=== PATIENT | female | born 1960 | race Caucasian/White ===

== ENCOUNTER 2017-11-23 13:45 | Emergency (ER) | payer BC ==
[~2017-11-23] VITALS: Ht 175.3 cm; Wt 72.6 kg
[~2017-11-23 13:45] MED LIST: ALBIPROI; ALBIPROI INH; AMOCLA875 PO; ASPI81EC; BUPR100 PO; BUPR75 PO; Budeprion Xl300 MG; CALCAVITDA; CALCAVITDA PO; CLIN300 PO; CONEST.9; CONEST.9 PO; CONEST1.25; DHEA PO; DOCU100 PO; ESCI10; ESTR.05PBW TOP; ESTR2; ESTROGEN PO; FISH1000 PO; FLUSAL1005; FROV2.5 PO; HORMONE; HYDACE5 PO; HYDMOR2 PO; HYDMOR4 PO; HYOS.125 SL; MECL25 PO; NABU500 PO; NAPR500; NAPR550 PO; OXYACE5T PO; PRED20 PO; PROC10 PO; PROG100 PO; PROM25 PO; PROM25S PR; RANI150; RXNAPNA550 PO; SULTRIDS PO; SUMA25; SUMA6I SC; SUMA6I SUBQ; SYNTEST; SYNTHETIC CONJUGATED ESTROGENS B; TOPI100; TOPI25 PO; TOPI50 PO; ZOLP10; [UNRECOGNIZED DRUG - OTHER]; [UNRECOGNIZED DRUG - OTHER]
[2017-11-23 14:47] LABS: BASOPHILS ABSOLUTE AUTO 0.04 K/mm3 (0.00-0.23); BASOPHILS PERCENT AUTO 0 % (0-2); EOSINOPHILS ABSOLUTE AUTO 0.07 K/mm3 (0.00-0.68); EOSINOPHILS PERCENT AUTO 1 % (0-6); Hematocrit 40.2 % (33.0-51.0); Hemoglobin 13.6 g/dL (11.5-16.0); IMMATURE GRAN ABSOLUTE AUTO 0.03 K/mm3 (0.00-0.10); IMMATURE GRAN PERCENT AUTO 0 % (0-1); LYMPHOCYTES ABSOLUTE AUTO 1.37 K/mm3 (0.84-5.20); LYMPHOCYTES PERCENT AUTO 13 % (21-46); MONOCYTES ABSOLUTE AUTO 0.78 K/mm3 (0.16-1.47); MONOCYTES PERCENT AUTO 7 % (4-13); Mean Corpuscular HGB 30.4 pg (26.0-34.0); Mean Corpuscular HGB Conc 33.8 g/dL (31.5-36.5); Mean Corpuscular Volume 90 fL (80-100); Mean Platelet Volume 9.6 fL (9.1-12.4); NEUTROPHILS ABSOLUTE AUTO 8.38 K/mm3 (1.96-9.15); NEUTROPHILS PERCENT AUTO 79 % (41-73); Platelet Count 259 K/mm3 (150-400); RDW Coefficient Variation 11.9 % (11.7-14.2); RDW Standard Deviation 38.9 fL (35.1-46.3); Red Blood Cell Count 4.47 M/mm3 (3.80-5.20); White Blood Cell Count 10.67 K/mm3 (4.00-11.30)
[2017-11-23 15:07] LABS: Albumin, Blood 3.8 g/dL (3.4-5.0); Albumin/Globulin Ratio 1.2 (0.8-1.8); Bilirubin, Total 0.4 mg/dL (0.1-1.0); Calcium, Blood 8.2 mg/dL (8.5-10.1); Creatinine, Blood 1.06 mg/dL (0.40-1.00); Globulin, Blood 3.2 g/dL (2.2-4.0); Potassium, Blood 3.4 mmol/L (3.5-5.5)
[2017-11-23 16:33] LABS: Source, Urine Clean Catch
[2017-11-23 16:36] LABS: Blood, Urine 1+ (Neg); Glucose Qualitative, Urine Neg (Neg); Ketones, Urine 1+ (Neg); Leukocyte Esterase, Urine 1+ (Neg); Nitrite, Urine Pos (Neg); Protein, Urine 1+ (Neg); Urobilinogen, Urine 4+ (Normal)
[2017-11-23 16:39] LABS: Appearance, Urine Clear (Clear); Bilirubin, Urine 3+ (Neg); Color, Urine Orange (P-Yellow)
[2017-11-23 16:43] LABS: Bacteria Few /hpf; Squamous Epithelial Cells Few /hpf (Few); White Blood Cells, Urine 0-2 /hpf (0-5)
[2017-11-23] MEDS ORDERED: Percocet 5-3251 EACH PO (17:02)
[2017-11-23] MEDS ORDERED: COMPAZINE10 MG PO (17:02)
[2017-11-23] MEDS ORDERED: KETO10 PO (17:02)
== END 2017-11-23 17:28 | disposition home or self-care (01) ==
LOC: ER 13:45
PROVIDERS: Emergency Medicine
DX: N13.2 Hydronephrosis with renal and ureteral calculous obstruction (principal)
CPT/HCPCS: 36415; 74176; 80053; 81001; 85025; 96361; 96374; 96375; 99284-25; J0780; J1200; J1885; J2405; J3010; J7030; P9612

== ENCOUNTER 2020-01-06 11:10 | Observation (INO) | payer BC ==
[~2020-01-06] VITALS: Ht 172.7 cm; Wt 75.3 kg
[~2020-01-06 11:10] MED LIST changes: +Bupropion HCl75 MG PO; +COMPAZINE10 MG PO; -ESTR2; +ESTR2 PO; +KETO10 PO; +Percocet 5-3251 EACH PO
[2020-01-06 11:38] LABS: BASOPHILS ABSOLUTE AUTO 0.04 K/mm3 (0.00-0.23); BASOPHILS PERCENT AUTO 1 % (0-2); EOSINOPHILS ABSOLUTE AUTO 0.04 K/mm3 (0.00-0.68); EOSINOPHILS PERCENT AUTO 1 % (0-6); Hematocrit 41.9 % (33.0-51.0); Hemoglobin 13.9 g/dL (11.5-16.0); IMMATURE GRAN ABSOLUTE AUTO 0.02 K/mm3 (0.00-0.10); IMMATURE GRAN PERCENT AUTO 0 % (0-1); LYMPHOCYTES ABSOLUTE AUTO 1.31 K/mm3 (0.84-5.20); LYMPHOCYTES PERCENT AUTO 16 % (21-46); MONOCYTES ABSOLUTE AUTO 1.17 K/mm3 (0.16-1.47); MONOCYTES PERCENT AUTO 14 % (4-13); Mean Corpuscular HGB 29.9 pg (26.0-34.0); Mean Corpuscular HGB Conc 33.2 g/dL (31.5-36.5); Mean Corpuscular Volume 90 fL (80-100); Mean Platelet Volume 9.2 fL (9.1-12.4); NEUTROPHILS ABSOLUTE AUTO 5.83 K/mm3 (1.96-9.15); NEUTROPHILS PERCENT AUTO 69 % (41-73); Platelet Count 291 K/mm3 (150-400); RDW Coefficient Variation 12.2 % (11.7-14.2); RDW Standard Deviation 40.3 fL (35.1-46.3); Red Blood Cell Count 4.65 M/mm3 (3.80-5.20); White Blood Cell Count 8.41 K/mm3 (4.00-11.30)
[2020-01-06 11:56] LABS: International Normalized Ratio 0.96; Prothrombin Time Results 10.3 Sec (9.7-11.5)
[2020-01-06 12:07] LABS: Alanine Aminotransfer (ALT/SGP 18 U/L (12-78); Albumin, Blood 3.1 g/dL (3.4-5.0); Albumin/Globulin Ratio 0.8 (0.8-1.8); Alk Phos 68 U/L (50-136); Anion Gap 6 mmol/L (6-16); Aspartate Aminotrans (AST/SGOT 12 U/L (12-37); Bilirubin, Total 0.5 mg/dL (0.1-1.0); Blood Urea Nitrogen 14 mg/dL (8-24); CO2, Blood 24 mmol/L (21-32); Calcium, Blood 8.2 mg/dL (8.5-10.1); Chloride, Blood 108 mmol/L (98-108); Creatinine, Blood 0.83 mg/dL (0.40-1.00); Globulin, Blood 3.8 g/dL (2.2-4.0); Glomerular Filtration Rate >60 (60-); Glucose, Blood 107 mg/dL (70-99); Potassium, Blood 4.1 mmol/L (3.5-5.5); Sodium, Blood 138 mmol/L (136-145); Total Protein, Blood 6.9 g/dL (6.4-8.2); Troponin I <0.015 ng/mL (0.000-0.040)
[2020-01-06] MEDS ORDERED: CALCIUM 600 +1 EA11 PO (12:35)
[2020-01-06] MEDS ORDERED: FISH OIL-VIT D1 EACH PO (12:37)
[2020-01-06] MEDS ORDERED: Vitamin E600 UNIT PO (12:39)
[2020-01-06] MEDS ORDERED: TOCO1000 PO (12:40)
--- NOTE | 2020-01-06 12:50 | NUR ---
ECHO AT THIS TIME
--- NOTE | 2020-01-06 15:03 | NUR ---
SWELLING NOTED: SWELLING NOTED ABOVE AND BELOW TR BAND. MANUELL PRESSURE PLACED ABOVE TR BAND. SECOND TR BAND WITH 12ML OF AIR PLACED ABOVE THE 1ST TR BAND REMAINS WITH 11ML. DR MADSEN AT THE BEDSIDE ORDERS FOR SERAFIN WRAP PLACEMENT ABOVE TR BANDS ON TO ELBOW, REMOVE AFTER [address] BACK ON. O2 SAT PROBE ON R INDEX FINGER NOTED TO BE AT 98% PULSES PALPABLE.
--- NOTE | 2020-01-06 15:21 | NUR ---
SERAFIN WRAP REMOVED AND LEFT OFF FOR 5 MIN THEN REPLACED. TIMER SET FOR 20 MIN
--- NOTE | 2020-01-06 15:50 | NUR ---
SERAFIN WRAP REMOVED AND REPLACED AFTER 5 MIN
--- NOTE | 2020-01-06 16:19 | NUR ---
SECOND TR BAND REMOVED: 5 MIN PRIOR TO REMOVING THE SERAFIN WRAP FOR THE 3RD TIME PT CALLS STATING PRESSURE/PAIN IN HER R HAND. DISCUSSED WITH TEACHER [employer] REMOVED SECOND TR BAND THAT WAS MOST PROXAMLE. THEN WRAPPED WITH SERAFIN WRAP FROM TR BAND TO ELBOW
--- NOTE | 2020-01-06 16:45 | NUR ---
SERAFIN WRAP REMOVED. CIRCUMFRANCE OF PT ARM IS LESS THAN IT WAS PREVIOUSLY NOTED. PT KEEPING HER ARM ELIVATED ABOVE HER HEAD. PT STATES HER HAND IS NO LONGER THROBBING LIKE IT PREVIOUSLY WAS. 1ML OF AIR REMOVED FOR TR BAND.
--- NOTE | 2020-01-06 20:00 | NUR ---
ASSUMED CARE: PT IN FOR ST ELEVATION NOTED WHILE PT WAS AT [facility] WITH C/O OF CHEST PAIN X 2 DAYS. TRANSFERRED TO ED AND EMERGENTLY TAKEN TO [employer] 2ND SHIFT. RESULTS WERE NEG IN [employer] 2ND SHIFT. CURRENTLY SBP IS IN THE 110S. HR IN THE 70-80S. TR BAND IN PLACE TO R RADIAL ACCESS SITE. DAYSHIFT REMOVED 4 CC FROM BAND. PT R FA AND HAND IS SWOLLEN AND BRUISED. PROVIDER AWARE. PULSE IS PALPABLE, CAP REFILL IS <3 SEC. FINGERS ARE WARM. NO OOZING OR BLEEDING FROM PUNCTURE SITE. ARM BOARD IN PLACE. PT IS AMBULATORY. 2 PIV IN EACH ARM. WILL CONTINUE TO MONITOR
[2020-01-07 03:45] LABS: BASOPHILS ABSOLUTE AUTO 0.03 K/mm3 (0.00-0.23); BASOPHILS PERCENT AUTO 1 % (0-2); EOSINOPHILS ABSOLUTE AUTO 0.13 K/mm3 (0.00-0.68); EOSINOPHILS PERCENT AUTO 3 % (0-6); Hematocrit 37.9 % (33.0-51.0); Hemoglobin 12.2 g/dL (11.5-16.0); IMMATURE GRAN ABSOLUTE AUTO 0.01 K/mm3 (0.00-0.10); IMMATURE GRAN PERCENT AUTO 0 % (0-1); LYMPHOCYTES ABSOLUTE AUTO 1.47 K/mm3 (0.84-5.20); LYMPHOCYTES PERCENT AUTO 28 % (21-46); MONOCYTES ABSOLUTE AUTO 0.93 K/mm3 (0.16-1.47); MONOCYTES PERCENT AUTO 18 % (4-13); Mean Corpuscular HGB 29.5 pg (26.0-34.0); Mean Corpuscular HGB Conc 32.2 g/dL (31.5-36.5); Mean Corpuscular Volume 92 fL (80-100); Mean Platelet Volume 9.4 fL (9.1-12.4); NEUTROPHILS ABSOLUTE AUTO 2.62 K/mm3 (1.96-9.15); NEUTROPHILS PERCENT AUTO 51 % (41-73); Platelet Count 267 K/mm3 (150-400); RDW Coefficient Variation 12.2 % (11.7-14.2); RDW Standard Deviation 41.5 fL (35.1-46.3); Red Blood Cell Count 4.14 M/mm3 (3.80-5.20); White Blood Cell Count 5.19 K/mm3 (4.00-11.30)
[2020-01-07 04:16] LABS: Anion Gap 5 mmol/L (6-16); Blood Urea Nitrogen 14 mg/dL (8-24); Bun/Creatinine Ratio 17.9 (12.0-20.0); CO2, Blood 26 mmol/L (21-32); CPK Creatine Kinase 64 U/L (26-193); Calcium, Blood 7.7 mg/dL (8.5-10.1); Chloride, Blood 110 mmol/L (98-108); Creatine Kinase MB 1.6 ng/mL (0.0-3.6); Creatine Kinase MB Index 2.5 (0.0-4.0); Creatinine, Blood 0.78 mg/dL (0.40-1.00); Glomerular Filtration Rate >60 (60-); Glucose, Blood 85 mg/dL (70-99); Sodium, Blood 141 mmol/L (136-145); Troponin I 0.287 ng/mL (0.000-0.040)
--- NOTE | 2020-01-07 06:01 | NUR ---
SHIFT SUMMARY: NO ACUTE CHANGES T/O SHIFT. VSS. R RADIAL SITE STABLE. TR BAND IS OFF, COVERED WITH OPSITE AND ARM BOARD IN PLACE. ARM STILL BRUISED AND SWOLLEN HOWEVER IT IS IMPROVING. PT DENIES PAIN OR DISCOMFORT. NS INFUSING AT 150MLS/HR. WILL PASS REPORT TO ONCOMING SHIFT.
--- NOTE | 2020-01-07 07:05 | NUR ---
ASSUMED CARE: RECEIVED BEDSIDE REPORT FROM NOC RN. PT APPEARS TO BE STABLE AND SLEEPING AT THIS TIME. EVEN CHEST RISE AND FALL, NO ACUTE DISTRESS NOTED AT THIS TIME. WILL CONTINUE TO MONIOTR AND ASSESS FURTHER.
--- NOTE | 2020-01-07 10:45 | NUR ---
DR ERWIN: DR SKELTON SEE PT TO ASSESS HEMATOMA AND R RADIAL SITE. DISCUSSED DISCHARGE AND EDUCATED ON EXPECTATION OF DISHCIARGE PAPERWORK. FOLLOW UP WITH HER IN 2 WEEKS. NO WORK FOR 2 WEEKS. CONTINUE MEDICATIONS PERSCRIBED. STOP TAKING MOTRIN IF BLACK STOOL OR IF PAIN IMPROVES.
[2020-01-07] MEDS ORDERED: IBUP400 PO (12:49)
[2020-01-07] MEDS ORDERED: COLCRYS0.6 MG PO (12:49)
[2020-01-07] MEDS ORDERED: OMEP20ER PO (12:50)
[2020-01-07] MEDS ORDERED: TRAM50 PO (12:50)
[2020-01-07] MEDS ORDERED: ONDA4ODT SL (12:51)
--- NOTE | 2020-01-07 14:16 | NUR ---
DISCHARGE: EDUCATED PT ON DISCHARGE INSTRUCTIONS AND GAVE HER DISCHARGE PACKET. PT IS AWAITING TRANSPERTATION.
--- NOTE | 2020-01-07 14:55 | NUR ---
DISCHARGE: WALKED PT OUT BY WHEELCHAIR TO ENTRANCE WHERE HER SON PICKED HER UP. NO ACUTE DISTRESS NOTED. VSS PRIOR TO WALKING PT OUT.
== END 2020-01-07 14:55 | disposition home or self-care (01) ==
LOC: ER 11:10 → ICUW 11:11 → ICUE 11:11 → ICUW 11:23 → ICUE 11:23 → ER 11:23 → ICUW 11:35 → ICUE 11:35
PROVIDERS: Emergency Medicine; ADMIT Internal Medicine Interventional Cardiology
PROC: B201YZZ Plain Radiography of Multiple Coronary Arteries using Other Contrast (ICD-10-PCS; principal; 2020-01-06)
PROC: 4A023N7 Measurement of Cardiac Sampling and Pressure, Left Heart, Percutaneous Approach (ICD-10-PCS; principal; 2020-01-06)
DX: R07.9 Chest pain, unspecified (principal); R94.31 Abnormal electrocardiogram [ECG] [EKG]; F41.9 Anxiety disorder, unspecified; I30.9 Acute pericarditis, unspecified; F32.9 Major depressive disorder, single episode, unspecified; Z88.5 Allergy status to narcotic agent; Z88.1 Allergy status to other antibiotic agents; Z88.2 Allergy status to sulfonamides
CPT/HCPCS: 36415; 71275; 76937; 80048; 80053; 82550; 82553; 84484; 85025; 85610; 85651; 85730; 86141; 93005; 93010; 93306; 93458; 99152; 99153; 99285-25; A9270-GY; C1769; C1887; C1894; J1644; J1885; J2250; J2405; J3010; J7030; J7040; Q9967

== ENCOUNTER 2020-03-19 16:39 | Emergency (ER) | payer BC ==
[~2020-03-19] VITALS: Ht 175.3 cm; Wt 76.7 kg
[~2020-03-19 16:39] MED LIST changes: -Flomax0.4 MG PO; -Norco 5-325 Ta1 EACH PO
[2020-03-19] MEDS ORDERED: Flomax0.4 MG PO (19:24)
[2020-03-19] MEDS ORDERED: Norco 5-325 Ta1 EACH PO (19:24)
== END 2020-03-19 19:47 | disposition home or self-care (01) ==
LOC: ER 16:39
DX: N13.2 Hydronephrosis with renal and ureteral calculous obstruction (principal); F32.9 Major depressive disorder, single episode, unspecified; Z88.5 Allergy status to narcotic agent; Z88.2 Allergy status to sulfonamides; Z88.1 Allergy status to other antibiotic agents; Z79.4 Long term (current) use of insulin; Z79.899 Other long term (current) drug therapy; Z87.891 Personal history of nicotine dependence; Z79.3 Long term (current) use of hormonal contraceptives; Z87.442 Personal history of urinary calculi
CPT/HCPCS: 74176; 96361; 96372-59; 96374; 96375; 99284-25; A9270; J1170; J2405; J7030

== ENCOUNTER → 2020-03-19 | Outpatient (CLI) | payer BC ==
[~2020-03-19] MED LIST changes: +CALCIUM 600 +1 EA11 PO; +COLCRYS0.6 MG PO; +FISH OIL-VIT D1 EACH PO; +Flomax0.4 MG PO; +IBUP400 PO; +Norco 5-325 Ta1 EACH PO; +OMEP20ER PO; +ONDA4ODT SL; +TOCO1000 PO; +TRAM50 PO; +Vitamin E600 UNIT PO
[2020-03-19 16:08] LABS: Source, Urine Voided
[2020-03-19 16:15] LABS: BASOPHILS ABSOLUTE AUTO 0.04 K/mm3 (0.00-0.23); BASOPHILS PERCENT AUTO 1 % (0-2); EOSINOPHILS ABSOLUTE AUTO 0.08 K/mm3 (0.00-0.68); EOSINOPHILS PERCENT AUTO 1 % (0-6); Hematocrit 41.4 % (33.0-51.0); Hemoglobin 14.5 g/dL (11.5-16.0); IMMATURE GRAN ABSOLUTE AUTO 0.01 K/mm3 (0.00-0.10); IMMATURE GRAN PERCENT AUTO 0 % (0-1); LYMPHOCYTES ABSOLUTE AUTO 1.65 K/mm3 (0.84-5.20); LYMPHOCYTES PERCENT AUTO 24 % (21-46); MONOCYTES ABSOLUTE AUTO 0.47 K/mm3 (0.16-1.47); MONOCYTES PERCENT AUTO 7 % (4-13); Mean Corpuscular HGB 30.3 pg (26.0-34.0); Mean Corpuscular Volume 87 fL (80-100); Mean Platelet Volume 9.5 fL (9.1-12.4); NEUTROPHILS ABSOLUTE AUTO 4.78 K/mm3 (1.96-9.15); NEUTROPHILS PERCENT AUTO 68 % (41-73); Platelet Count 276 K/mm3 (150-400); RDW Coefficient Variation 12.2 % (11.7-14.2); RDW Standard Deviation 38.8 fL (35.1-46.3); Red Blood Cell Count 4.78 M/mm3 (3.80-5.20); White Blood Cell Count 7.03 K/mm3 (4.00-11.30)
[2020-03-19 16:15] LABS: Bacteria Few /hpf; Red Blood Cells, Urine 25-50 /hpf (0-2); Squamous Epithelial Cells Many /hpf (Few); White Blood Cells, Urine Rare /hpf (0-5)
[2020-03-19 16:33] LABS: Albumin/Globulin Ratio 1.1 (0.8-1.8); Bilirubin, Total 0.3 mg/dL (0.1-1.0); Bun/Creatinine Ratio 18.8 (12.0-20.0); Calcium, Blood 8.8 mg/dL (8.5-10.1); Creatinine, Blood 1.12 mg/dL (0.40-1.00); Globulin, Blood 3.5 g/dL (2.2-4.0); Potassium, Blood 3.8 mmol/L (3.5-5.5); Total Protein, Blood 7.5 g/dL (6.4-8.2)
== END ==
LOC: LAB SHORT 16:05 → LAB EV 16:05
PROVIDERS: General Practice
DX: R10.9 Unspecified abdominal pain (principal)
CPT/HCPCS: 80053; 81015; 85025; 87086

== ENCOUNTER 2020-05-11 19:02 | Emergency (ER) | payer BC ==
[~2020-05-11] VITALS: Ht 175.3 cm; Wt 76.7 kg
[~2020-05-11 19:02] MED LIST changes: +Flomax0.4 MG PO; +Norco 5-325 Ta1 EACH PO
[2020-05-11 20:18] LABS: BASOPHILS ABSOLUTE AUTO 0.04 K/mm3 (0.00-0.23); BASOPHILS PERCENT AUTO 0 % (0-2); EOSINOPHILS ABSOLUTE AUTO 0.06 K/mm3 (0.00-0.68); EOSINOPHILS PERCENT AUTO 1 % (0-6); Hematocrit 40.6 % (33.0-51.0); Hemoglobin 13.2 g/dL (11.5-16.0); IMMATURE GRAN ABSOLUTE AUTO 0.04 K/mm3 (0.00-0.10); IMMATURE GRAN PERCENT AUTO 0 % (0-1); LYMPHOCYTES ABSOLUTE AUTO 1.13 K/mm3 (0.84-5.20); LYMPHOCYTES PERCENT AUTO 10 % (21-46); MONOCYTES ABSOLUTE AUTO 0.94 K/mm3 (0.16-1.47); MONOCYTES PERCENT AUTO 9 % (4-13); Mean Corpuscular HGB 29.5 pg (26.0-34.0); Mean Corpuscular HGB Conc 32.5 g/dL (31.5-36.5); Mean Corpuscular Volume 91 fL (80-100); NEUTROPHILS ABSOLUTE AUTO 8.82 K/mm3 (1.96-9.15); NEUTROPHILS PERCENT AUTO 80 % (41-73); RDW Coefficient Variation 12.3 % (11.7-14.2); Red Blood Cell Count 4.47 M/mm3 (3.80-5.20); White Blood Cell Count 11.03 K/mm3 (4.00-11.30)
[2020-05-11 20:19] LABS: Mean Platelet Volume 9.6 fL (9.1-12.4); Platelet Count 264 K/mm3 (150-400)
[2020-05-11 20:36] LABS: Alanine Aminotransfer (ALT/SGP 20 U/L (12-78); Albumin, Blood 3.4 g/dL (3.4-5.0); Albumin/Globulin Ratio 0.9 (0.8-1.8); Alk Phos 78 U/L (50-136); Anion Gap 7 mmol/L (6-16); Aspartate Aminotrans (AST/SGOT 17 U/L (12-37); Bilirubin, Total 0.4 mg/dL (0.1-1.0); Blood Urea Nitrogen 18 mg/dL (8-24); Bun/Creatinine Ratio 24.1 (12.0-20.0); CO2, Blood 26 mmol/L (21-32); Calcium, Blood 8.7 mg/dL (8.5-10.1); Chloride, Blood 103 mmol/L (98-108); Creatinine, Blood 0.75 mg/dL (0.40-1.00); Globulin, Blood 3.6 g/dL (2.2-4.0); Glomerular Filtration Rate >60 (60-); Glucose, Blood 138 mg/dL (70-99); Sodium, Blood 136 mmol/L (136-145); Troponin I <0.015 ng/mL (0.000-0.040)
[2020-05-11] MEDS ORDERED: COLCHICINE0.6 MG PO (21:31)
== END 2020-05-11 21:55 | disposition home or self-care (01) ==
LOC: ER 19:02
PROVIDERS: Emergency Medicine
DX: R07.9 Chest pain, unspecified (principal); R06.02 Shortness of breath; R60.0 Localized edema; Z79.899 Other long term (current) drug therapy; Z87.891 Personal history of nicotine dependence; Z88.1 Allergy status to other antibiotic agents; Z88.5 Allergy status to narcotic agent; Z88.2 Allergy status to sulfonamides; Z87.442 Personal history of urinary calculi
CPT/HCPCS: 71046; 80053; 83880; 84484; 85025; 85651; 86140; 93005; 93010; 93970; 99285-25

== ENCOUNTER 2020-08-23 12:47 | Emergency (ER) | payer BC ==
[~2020-08-23] VITALS: Ht 175.3 cm; Wt 79.4 kg
[~2020-08-23 12:47] MED LIST changes: +COLCHICINE0.6 MG PO
[2020-08-23 14:47] LABS: BASOPHILS ABSOLUTE AUTO 0.06 K/mm3 (0.00-0.23); BASOPHILS PERCENT AUTO 1 % (0-2); EOSINOPHILS ABSOLUTE AUTO 0.12 K/mm3 (0.00-0.68); EOSINOPHILS PERCENT AUTO 1 % (0-6); Hematocrit 41.4 % (33.0-51.0); Hemoglobin 13.8 g/dL (11.5-16.0); IMMATURE GRAN ABSOLUTE AUTO 0.02 K/mm3 (0.00-0.10); IMMATURE GRAN PERCENT AUTO 0 % (0-1); LYMPHOCYTES ABSOLUTE AUTO 1.45 K/mm3 (0.84-5.20); LYMPHOCYTES PERCENT AUTO 17 % (21-46); MONOCYTES ABSOLUTE AUTO 0.96 K/mm3 (0.16-1.47); MONOCYTES PERCENT AUTO 11 % (4-13); Mean Corpuscular HGB 29.7 pg (26.0-34.0); Mean Corpuscular HGB Conc 33.3 g/dL (31.5-36.5); Mean Corpuscular Volume 89 fL (80-100); Mean Platelet Volume 9.4 fL (9.1-12.4); NEUTROPHILS ABSOLUTE AUTO 6.18 K/mm3 (1.96-9.15); NEUTROPHILS PERCENT AUTO 70 % (41-73); Platelet Count 258 K/mm3 (150-400); RDW Coefficient Variation 12.2 % (11.7-14.2); RDW Standard Deviation 40.2 fL (35.1-46.3); Red Blood Cell Count 4.64 M/mm3 (3.80-5.20); White Blood Cell Count 8.79 K/mm3 (4.00-11.30)
[2020-08-23 15:20] LABS: Alanine Aminotransfer (ALT/SGP 23 U/L (12-78); Albumin, Blood 3.2 g/dL (3.4-5.0); Albumin/Globulin Ratio 0.9 (0.8-1.8); Alk Phos 76 U/L (50-136); Anion Gap 5 mmol/L (6-16); Aspartate Aminotrans (AST/SGOT 17 U/L (12-37); Bilirubin, Total 0.6 mg/dL (0.1-1.0); Blood Urea Nitrogen 18 mg/dL (8-24); Bun/Creatinine Ratio 26.8 (12.0-20.0); CO2, Blood 24 mmol/L (21-32); Calcium, Blood 8.4 mg/dL (8.5-10.1); Chloride, Blood 104 mmol/L (98-108); Creatinine, Blood 0.67 mg/dL (0.40-1.00); Globulin, Blood 3.7 g/dL (2.2-4.0); Glomerular Filtration Rate >60 (60-); Glucose, Blood 90 mg/dL (70-99); Potassium, Blood 4.3 mmol/L (3.5-5.5); Sodium, Blood 133 mmol/L (136-145); Total Protein, Blood 6.9 g/dL (6.4-8.2)
[2020-08-23 15:22] LABS: Troponin I <0.015 ng/mL (0.000-0.040)
[2020-08-23 15:32] LABS: Influenza A, PCR NEGATIVE (NEGATIVE); Influenza B, PCR NEGATIVE (NEGATIVE); Resp Syncytial Virus, PCR NEGATIVE (NEGATIVE); SARS-Cov-2 (COVID-19) PCR, MMC NEGATIVE (NEGATIVE)
--- NOTE | 2020-08-23 16:01 | NUR ---
Echocardiogram completed.
[2020-08-23] MEDS ORDERED: ONDA4ODT SL (17:22)
[2020-08-23] MEDS ORDERED: Percocet 5-3251 EACH PO (17:22)
[2020-08-23] MEDS ORDERED: IBUP400 PO (17:24)
[2020-08-23] MEDS ORDERED: COLCHICINE0.6 MG PO (17:24)
[2020-08-23] MEDS ORDERED: Protonix40 MG PO (17:28)
== END 2020-08-23 17:45 | disposition home or self-care (01) ==
LOC: ER 12:47
PROVIDERS: Emergency Medicine; Physician Assistant
DX: R07.89 Other chest pain (principal); Z88.1 Allergy status to other antibiotic agents; Z88.5 Allergy status to narcotic agent; Z20.822 Contact with and (suspected) exposure to COVID-19; Z88.2 Allergy status to sulfonamides; Z79.899 Other long term (current) drug therapy; Z87.442 Personal history of urinary calculi; Z87.891 Personal history of nicotine dependence
CPT/HCPCS: 0241U; 36415; 71046; 80053; 84484; 85025; 93005; 93010; 93306; 96374; 96375; 99285-25; C9113; J1170; J1885; J2405; J2550

== ENCOUNTER 2022-12-19 11:43 | Day surgery (SDC) | payer BC ==
[~2022-12-19] VITALS: Ht 175.3 cm; Wt 76.8 kg
[~2022-12-19 11:43] MED LIST changes: +Protonix40 MG PO
[2022-12-19] MEDS ORDERED: TOPI25 PO (13:17)
[2022-12-19] MEDS ORDERED: HAIR, SKIN AND1 EAC3 PO (13:18)
[2022-12-19] MEDS ORDERED: One Daily Wome0.4 MG PO (13:18)
[2022-12-19 14:35] VITALS: BP 104/71
== END 2022-12-19 14:40 | disposition home or self-care (01) ==
LOC: ORSCSDS 11:43
PROVIDERS: Internal Medicine Gastroenterology
PROC: 0DBL8ZX Excision of Transverse Colon, Via Natural or Artificial Opening Endoscopic, Diagnostic (ICD-10-PCS; principal; 2022-12-19 13:00)
DX: Z12.11 Encounter for screening for malignant neoplasm of colon (principal); Z86.010 Personal history of colon polyps; K63.5 Polyp of colon; J45.909 Unspecified asthma, uncomplicated; Z87.891 Personal history of nicotine dependence; Z79.899 Other long term (current) drug therapy
CPT/HCPCS: 88305; J2704; J7120

== ENCOUNTER → 2023-02-22 | Outpatient (CLI) | payer BC ==
[~2023-02-22] MED LIST changes: +HAIR, SKIN AND1 EAC3 PO; +One Daily Wome0.4 MG PO
[2023-02-22 17:03] LABS: Albumin, Blood 3.8 g/dL (3.4-5.0); Albumin/Globulin Ratio 1.1 (0.8-1.8); Bilirubin, Total 0.2 mg/dL (0.1-1.0); Bun/Creatinine Ratio 22.9 (12.0-20.0); Calcium, Blood 8.7 mg/dL (8.5-10.1); Creatinine, Blood 0.83 mg/dL (0.40-1.00); Globulin, Blood 3.5 g/dL (2.2-4.0); Potassium, Blood 4.4 mmol/L (3.5-5.5); Total Protein, Blood 7.3 g/dL (6.4-8.2)
[2023-02-22 17:18] LABS: BASOPHILS ABSOLUTE AUTO 0.05 K/mm3 (0.00-0.23); BASOPHILS PERCENT AUTO 1 % (0-2); EOSINOPHILS ABSOLUTE AUTO 0.15 K/mm3 (0.00-0.68); EOSINOPHILS PERCENT AUTO 2 % (0-6); Hematocrit 43.6 % (33.0-51.0); Hemoglobin 14.6 g/dL (11.5-16.0); IMMATURE GRAN ABSOLUTE AUTO 0.01 K/mm3 (0.00-0.10); IMMATURE GRAN PERCENT AUTO 0 % (0-1); LYMPHOCYTES ABSOLUTE AUTO 1.79 K/mm3 (0.84-5.20); LYMPHOCYTES PERCENT AUTO 24 % (21-46); MONOCYTES ABSOLUTE AUTO 0.75 K/mm3 (0.16-1.47); MONOCYTES PERCENT AUTO 10 % (4-13); Mean Corpuscular HGB 30.1 pg (26.0-34.0); Mean Corpuscular HGB Conc 33.5 g/dL (31.5-36.5); Mean Corpuscular Volume 90 fL (80-100); Mean Platelet Volume 8.9 fL (9.1-12.4); NEUTROPHILS ABSOLUTE AUTO 4.82 K/mm3 (1.96-9.15); NEUTROPHILS PERCENT AUTO 64 % (41-73); Platelet Count 325 K/mm3 (150-400); RDW Coefficient Variation 12.7 % (11.7-14.2); RDW Standard Deviation 41.7 fL (35.1-46.3); Red Blood Cell Count 4.85 M/mm3 (3.80-5.20); White Blood Cell Count 7.57 K/mm3 (4.00-11.30)
== END | disposition home or self-care (01) ==
LOC: LAB 16:49 → LAB SHORT 16:49
PROVIDERS: Physician Assistant
DX: R07.89 Other chest pain (principal)
CPT/HCPCS: 80053; 84484; 85025

== ENCOUNTER → 2024-04-07 | Outpatient (CLI) | payer BC ==
[2024-04-07 08:38] LABS: BASOPHILS ABSOLUTE AUTO 0.05 K/mm3 (0.00-0.23); BASOPHILS PERCENT AUTO 1 % (0-2); EOSINOPHILS ABSOLUTE AUTO 0.06 K/mm3 (0.00-0.68); EOSINOPHILS PERCENT AUTO 1 % (0-6); Hematocrit 43.5 % (33.0-51.0); Hemoglobin 14.6 g/dL (11.5-16.0); IMMATURE GRAN ABSOLUTE AUTO 0.01 K/mm3 (0.00-0.10); IMMATURE GRAN PERCENT AUTO 0 % (0-1); LYMPHOCYTES ABSOLUTE AUTO 1.45 K/mm3 (0.84-5.20); LYMPHOCYTES PERCENT AUTO 17 % (21-46); MONOCYTES ABSOLUTE AUTO 0.66 K/mm3 (0.16-1.47); MONOCYTES PERCENT AUTO 8 % (4-13); Mean Corpuscular HGB 30.2 pg (26.0-34.0); Mean Corpuscular HGB Conc 33.6 g/dL (31.5-36.5); Mean Corpuscular Volume 90 fL (80-100); Mean Platelet Volume 9.4 fL (9.1-12.4); NEUTROPHILS ABSOLUTE AUTO 6.52 K/mm3 (1.96-9.15); NEUTROPHILS PERCENT AUTO 75 % (41-73); Platelet Count 316 K/mm3 (150-400); RDW Coefficient Variation 12.4 % (11.7-14.2); RDW Standard Deviation 40.6 fL (35.1-46.3); Red Blood Cell Count 4.83 M/mm3 (3.80-5.20); White Blood Cell Count 8.75 K/mm3 (4.00-11.30)
[2024-04-07 08:47] LABS: Albumin, Blood 3.7 g/dL (3.4-5.0); Bilirubin, Total 0.3 mg/dL (0.1-1.0); Bun/Creatinine Ratio 12.3 (12.0-20.0); Calcium, Blood 8.7 mg/dL (8.5-10.1); Creatinine, Blood 1.22 mg/dL (0.40-1.00); Globulin, Blood 3.7 g/dL (2.2-4.0); Potassium, Blood 3.6 mmol/L (3.5-5.5); Total Protein, Blood 7.4 g/dL (6.4-8.2)
== END | disposition home or self-care (01) ==
LOC: LAB 08:35 → LAB SHORT 08:35
PROVIDERS: Physician Assistant
DX: R11.2 Nausea with vomiting, unspecified (principal)
CPT/HCPCS: 80053; 85025